=== PATIENT | female | born 1965 | race Caucasian/White ===

== ENCOUNTER 2017-08-14 10:33 | Day surgery (SDC) | payer BC ==
[2017-08-13 14:28] VITALS: BMI 23.7
[~2017-08-14] VITALS: Ht 154.9 cm; Wt 79.5 kg
[2017-08-14] VITALS (8 sets, daily range): BP systolic 114–160; BP diastolic 65–83; PULSE 83–108; RESP 17–18; Ht 154.9 cm; Wt 79.5 kg
[2017-08-14] MEDS ORDERED: LEVO112T2 PO (11:05)
[2017-08-14] MEDS ORDERED: CRES10 PO (11:06)
[2017-08-14] MEDS ORDERED: BUPIVACAINE 0.5%/EPI (SDV) 30 ML INJ ONE (12:14)
[2017-08-14] MEDS ORDERED: SUCCINYLCHOLINE CHLORIDE 100 MG/5 ML SYG IV ONE (12:24)
[2017-08-14] MEDS ORDERED: PROPOFOL 20 ML ONE (12:24)
[2017-08-14] MEDS ORDERED: ROCURONIUM 50 MG INJ ONE (12:24)
[2017-08-14] MEDS ORDERED: ONDANSETRON 4 MG INJ ONE (12:25)
[2017-08-14] MEDS ORDERED: CEFAZOLIN 1 GM INJ ONE (12:25)
[2017-08-14] MEDS ORDERED: METOCLOPRAMIDE 10 MG INJ ONE (12:25)
[2017-08-14] MEDS ORDERED: FENTAnyl 50 MCG/ML VIAL ONE (12:25)
[2017-08-14] MEDS ORDERED: LIDOCAINE 1% (MPF) 30 ML INJ ONE (12:28)
[2017-08-14] MEDS ORDERED: HYDROmorphONE (0.2 MG/ML) 10ML SYG IV PRN ×3 (12:30)
[2017-08-14] MEDS ORDERED: ONDANSETRON 4 MG INJ IV PRN ×2 (12:30→13:00)
[2017-08-14] MEDS ORDERED: hydrALAzine 20 MG INJ IV PRN (12:30)
[2017-08-14] MEDS ORDERED: LABETALOL HCL 20MG INJ IV PRN (12:30)
[2017-08-14] MEDS ORDERED: FENTAnyl 50 MCG/ML VIAL IV PRN ×2 (12:30)
[2017-08-14] MEDS ORDERED: MEPERIDINE 25 MG INJ IV PRN (12:30)
--- NOTE | 2017-08-14 12:36 | HPN ---
Date/Time of Note Date/Time of Note DATE: 08/14/17 TIME: 12:35 Interval H&P Admission Note Pt. seen H&P reviewed: No system changes ALEX SCHWARTZ MD Aug 14, 2017 12:36
[2017-08-14] MEDS ORDERED: morphine 10 MG INJ IV PRN (13:00)
[2017-08-14] MEDS ORDERED: HYDROCODONE/APAP (5/325) TAB PO PRN (13:00)
[2017-08-14] MEDS ORDERED: morphine SULFATE/PF (10 MG/10 ML) INJ ONE (13:27)
[2017-08-14] MEDS ORDERED: TRIAMCINOLONE ACET 40 MG/ML INJ ONE (13:42)
--- NOTE | 2017-08-14 16:19 | OPR ---
DATE OF OPERATION: 08/14/2017 PREOPERATIVE DIAGNOSIS: 1. Tear of the lateral meniscus, right knee. 2. Elements of tendonitis, right knee, status post resolved popliteal cyst, right knee. PREOPERATIVE DIAGNOSIS: 1. Tear of mid and posterior horn of medial meniscus, right knee. 2. 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 3. Degenerative tear of lateral meniscus. 4. Extensive synovitis of right knee. OPERATION PERFORMED 1. Arthroscopic partial medial meniscectomy, right knee. 2. Arthroscopic condyle partial lateral meniscectomy, right knee. 3. Chondroplasty, medial compartment, medial femoral condyle, right knee. 4. Three compartment synovectomy, right knee. 5. Injections of right knee, which was done with a combination of Marcaine, Duramorph, and Kenalog. SURGEON: Alex Schwartz MD. ANESTHESIOLOGIST: Dr. Arenas. ANESTHESIA: General. BACKGROUND: A few months' history of pain of right knee, which at one time was diagnosed as poplite al cyst based on diagnostic studies. Condition was temporary and only partially improved. Pain con tinued in posteromedial aspect of the right knee. MRI suggests tear of posterior horn and mid segme nt of medial meniscus and degenerative tear of lateral meniscus. At this time, the patient is sched uled for arthroscopic intervention of right knee. Nature of procedure, postoperative care, possible risks and complications have been explained to her. DETAIL: She was brought to the operating room, placed on the operative table in supine position. G eneral anesthesia administered by anesthesiologist, Dr. Arenas. The patient received 2 grams intrav enous Ancef preoperatively. Tourniquet cuff was placed in proximal segment of right thigh. Evaluat ion of right knee under anesthesia did not suggest effusion, but some swelling was present. No monisha s crepitation identified in flexion, extension. No linear laxity or rotatory instability identified . Range of motion was 0 to 115. Preoperatively, the patient had no in the right calf with ne gative Homans sign. Following exsanguination of limb, using elastic Esmarch bandage and inflation of tourniquet to 275 m mHg, site portals were outlined using marking pen. Inflow was established from superomedial portal. 30-degree angle was introduced into the joint from inferolateral portal and knee was evaluated, wh ich showed significant synovitic changes, including large synovial structure intruding into patellof emoral area from medial side. Patellofemoral relation appeared to be normal. Medial compartment ag ain shows significant synovitis. There was also a tear of medial and posterior horn of medial menis cus and also chondromalacia in large segment of medial femoral condyle graded 3+ and a small area of grade 4. ACL was intact. Synovitic change again was present. Lateral compartment documented show ing degenerative tear on free edge of the lateral meniscus. Again, synovitic changes of lateral com partment also were present. Operative arthroscopy included performing partial medial meniscectomy. This was done with use of ba sket punches, full radius shaver, and Arthrocare, establishing a stable base of medial meniscus. Ch ondral flap of medial femoral condyle and chondromalacia of medial compartment/femoral condyle was s haved off with use of full radius shaver and Arthrocare. During the procedure, multiple times the p robe was used to check the status of the meniscus and its progress through procedure. With the knee in position 4, arthroscope was introduced into the lateral compartment and partial lateral meniscec yakov by the use of full radius shaver and Arthrocare was achieved. Lateral compartment did not sugg est any significant chondromalacia. The last compartment which was worked on was the patellofemoral area, and this area also had large synovium, which was intruding into patellofemoral joint. It was shaved off with full radius shaver and Arthrocare. Knee was washed out with copious amount of solu tion and portal was closed using 4-0 nylon. The knee was injected with a total of 15 mL of Marcaine , 5 mg Duramorph, and 40 mg of Kenalog before application of sterile dressing and Duke type dressin g and before patient was transferred to recovery room. She had no early postop complications. Tour niquet time was 50 minutes at 275 mmHg. Dictated By: ALEX SCHWARTZ MD, SA/JOVANY Conf#: [id number] DID#: [id number]
== END 2017-08-14 15:53 | disposition home or self-care (01) ==
LOC: SDS 10:33
PROVIDERS: ATTEND Orthopaedic Surgery
DX: M23.221 Derangement of posterior horn of medial meniscus due to old tear or injury, right knee (principal); M94.261 Chondromalacia, right knee; M23.200 Derangement of unspecified lateral meniscus due to old tear or injury, right knee; M65.861 Other synovitis and tenosynovitis, right lower leg; E03.9 Hypothyroidism, unspecified; E78.5 Hyperlipidemia, unspecified
CPT/HCPCS: 29880; 84703; J0690; J1170; J2175; J2274; J2405; J2765; J3010